=== PATIENT | female | born 1940 | race Caucasian/White ===

== ENCOUNTER → 2020-10-01 15:47 | Outpatient (CLI) | payer MEDICARE, BC, SELFPAY ==
--- NOTE | 2020-10-01 15:56 | DI.MRI.S_ITS ---
PROCEDURE: MR ANGIO HEAD WO CON INDICATIONS: DIZZINESS TECHNIQUE: Noncontrast axial 3-D [id number] MR angiogram, with 3-dimensional maximum intensity projection (MIP) reformats of the internal carotid arteries and posterior circulation then performed. COMPARISON: None. FINDINGS: Image quality: Excellent. Anterior circulation: Intracranial internal carotid arteries demonstrate normal size and intraluminal flow signal. The flow within the paired anterior cerebral arteries is normal and symmetric. The flow within the middle cerebral arteries is normal and symmetric. The anterior communicating artery is seen. No stenoses, occlusions, or aneurysms. Posterior circulation: Right vertebral artery is patent. Distal left vertebral artery is either congenitally absent or very small in caliber. Basilar artery is patent.. Near origin of the left posterior cerebral artery. The flow within the posterior cerebral arteries is normal and symmetric. No stenoses, occlusions, or aneurysms. IMPRESSION: 1. Negative cerebral MR angiography. Dictated by: Arthur Thompson M.D. on 10/01/2020 at 16:39 Approved by: Arthur Thompson M.D. on 10/01/2020 at 16:40
== END ==
PROVIDERS: PCP Internal Medicine; Referring Provider Internal Medicine; Visit Provider Internal Medicine
DX: R42 Dizziness and giddiness (principal)
CPT/HCPCS: 70544

== ENCOUNTER → 2023-09-06 10:53 | Outpatient (CLI) | payer MEDICARE, BC, SELFPAY ==
--- NOTE | 2023-09-06 11:06 | DI.RAD.S_ITS ---
PROCEDURE: [place] SHOULDER INJECTION MR/CT RT INDICATIONS: Bicipital tendinitis, right shoulder COMPARISON: [facility], MR, MR SHOULDER RT W CON, 09/06/2023, 12:02. TECHNIQUE: The indications, alternatives, benefits, risks, and complications of the procedure were explained to the patient. Written informed consent was obtained and placed in the chart. The shoulder was examined fluoroscopically and a site for needle placement chosen for entry into the glenohumeral joint from an anterior approach. The skin was prepped and draped in a sterile fashion, and 1% lidocaine infiltrated from skin down to joint capsule. A spinal needle was inserted into the glenohumeral joint, and a small amount of iodinated contrast media injected to confirm intra-articular placement of the needle tip. This was followed by approximately 12 mL dilute solution of a gadolinium containing MR contrast agent. The needle was removed and a dressing was applied. The patient was given postprocedural instructions and sent to the MR suite for MR imaging. FINDINGS: A single fluoroscopic spot image demonstrates intra-articular location of injected iodinated contrast. IMPRESSION: Successful fluoroscopically guided administration of dilute Gadolinium solution into the shoulder joint for MR arthrogram. Dictated by: Nitish De M.D. on 09/06/2023 at 12:52 Approved by: Nitish De M.D. on 09/06/2023 at 12:53
--- NOTE | 2023-09-06 11:06 | DI.MRI.S_ITS ---
PROCEDURE: MR SHOULDER RT W CON INDICATIONS: Bicipital tendinitis, right shoulder TECHNIQUE: After the administration of 12 mL of dilute intra-articular Gadolinium contrast, oblique coronal T1 and T2 spin echo with fat saturation, oblique sagittal T1 spin echo with and without fat saturation, oblique sagittal T2 fast spin echo with fat saturation, axial T1 spin echo with fat saturation through the shoulder. COMPARISON: [facility], , [place] SHOULDER INJECTION MR/CT RT, 09/06/2023, 11:24. FINDINGS: Image quality: Excellent. Rotator cuff: Moderate to severe supraspinatus and infraspinatus tendinosis. There is superimposed low-grade partial intrasubstance tearing at the distal supraspinatus insertion and low grade partial articular sided tearing of the critical zone. Teres minor tendon is intact. There is moderate subscapularis tendinosis and low-grade partial intrasubstance tearing of the distal subscapularis insertion. Intramuscular edema is seen within the medial portion of the supraspinatus muscle that is suspicious for a low-grade strain. The rotator cuff musculature is otherwise normal in signal intensity and bulk. Bones and bursae: No acute trabecular bone injury or fracture. Chronic traction cystic changes are seen at the posterior superior humeral head. Mild partial-thickness cartilage irregularity in the glenohumeral joint. Moderate to severe degenerative changes are seen at the acromioclavicular joint with subchondral cystic changes and subchondral edema as well as marginal osteophyte formation. There is trace noncommunicating fluid in the subacromial/subdeltoid bursa. No loose body is seen in the glenohumeral joint space. Capsule and soft tissues: There is nondisplaced tearing of the superior labrum from posterior superior to anterior inferior. Proximal biceps long head tendon demonstrates moderate to severe tendinosis and partial intrasubstance tearing. Glenohumeral ligaments appear to be intact. IMPRESSION: 1. Partial intrasubstance tearing of the proximal biceps long head tendon superimposed on moderate to severe tendinosis. 2. Nondisplaced tearing of the superior labrum from posterior superior to anterior inferior. 3. Moderate to severe supraspinatus and infraspinatus tendinosis. Low-grade partial intrasubstance tearing is seen at the distal supraspinatus insertion. There is also low-grade partial articular sided tearing at the distal supraspinatus at the critical zone. Moderate subscapularis tendinosis. 4. Intramuscular edema within the supraspinatus muscle is suspicious for a low-grade strain. 5. 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 1. Approved by: Jose Wagoner M.D. on 09/06/2023 at 21:37
[2023-09-06] MEDS: SODIUM CHLORIDE 0.9 % 20 ML VIAL IV (11:54)
[2023-09-06] MEDS: LIDOCAINE 1% 20 ML INJ (11:54)
--- NOTE | 2023-09-06 12:08 | DI.RAD.S_ITS ---
PROCEDURE: XR HAND RT MIN 3V INDICATIONS: BICIPITAL TENDONITIS TECHNIQUE: 3 views of the hand(s) acquired. COMPARISON: None. FINDINGS: Bones: No acute fracture or subluxation seen. Degenerative changes of the 1st carpometacarpal and STT joints are seen. Degenerative changes of the 2nd 3rd 4th and 5th distal interphalangeal joint is also noted Soft tissues: No radiographically evident soft tissue swelling. IMPRESSION: Osteoarthritic degenerative changes as noted above Dictated by: Juan Rutledge M.D. on 09/06/2023 at 15:50 Approved by: Juan Rutledge M.D. on 09/06/2023 at 15:53
== END ==
PROVIDERS: PCP Internal Medicine; Referring Provider Internal Medicine; Visit Provider Internal Medicine
DX: S46.111A Strain of muscle, fascia and tendon of long head of biceps, right arm, initial encounter (principal); S43.431A Superior glenoid labrum lesion of right shoulder, initial encounter; M75.21 Bicipital tendinitis, right shoulder; M75.111 Incomplete rotator cuff tear or rupture of right shoulder, not specified as traumatic; M19.011 Primary osteoarthritis, right shoulder
CPT/HCPCS: 23350; 73130; 73222; 77002